=== PATIENT | female | born 1985 ===

== ENCOUNTER 2018-02-28 10:40 | Emergency (ER) | payer SELFPAY ==
[2018-02-28 11:13] LABS: #Basophils 0.1 thou/uL (0.0-0.2); #Eosinphils 0.1 thou/uL (0.0-0.7); #Lymphocytes 1.9 thou/uL (1.20-3.40); #Monocytes 0.6 thou/uL (0.11-0.59); #Neutrophils 3.4 thou/uL (1.40-6.50); %Basophils 1.3 % (0.0-1.0); %Eosinophils 1.4 % (0.0-10.0); %Monocytes 10.3 % (0.0-10.0); %Neutrophils 55.9 % (42.0-75.0); Hemoglobin 14.9 g/dL (12.0-16.0); Mean Corpuscular HGB CONC 34.3 g/dL (32.0-36.0); Mean Corpuscular Hemoglobin 32.7 pg (27.0-31.0); Mean Corpuscular Volume 95.4 fL (78.0-98.0); Mean Platelet Volume 8.9 fL (7.4-10.4); Platelet Count 166 thou/uL (130-400); RBC Distribution Width 11.6 % (11.5-14.5); Red Blood Cell (RBC) Count 4.56 mill/uL (4.20-5.40); White Blood Cell (WBC) Count 6.2 thou/uL (4.8-10.8)
[2018-02-28 11:32] LABS: Bilirubin Negative (Negative); Blood, Urine Negative (Negative); Clarity CLOUDY (Clear); Glucose, Urine (Dipstick) Negative (Negative); Leukocyte Negative (Negative); Nitrite Negative (Negative); Pregnancy Test - Urine (BHCG) Negative (Negative); Pregu Control Background? CLEAR/WHITE (CLR/WHITE); Pregu Control Bar Appear? YES (CONTROL BAR); Protein, Urine (Dipstick) Trace mg/dL (Neg-Trace); Specific Gravity 1.024 (1.002-1.036); Specific Gravity, Urine 1.024 (1.002-1.036); Urobilinogen 0.2 mg/dL (0.2-1.0)
[2018-02-28 11:36] LABS: ALT (SGPT) 7 U/L (8-55); AST (SGOT) 11 U/L (5-34); Albumin 4.5 g/dL (3.5-5.0); Alkaline Phosphatase 54 U/L (40-150); Anion Gap 12 mmol/L (10-20); BUN (Urea Nitrogen) 11 mg/dL (7.0-18.7); Bilirubin, Total 0.6 mg/dL (0.2-1.2); Calc. Creatinine Clearance 0 mL/min (70-130); Calcium 9.8 mg/dL (7.8-10.44); Carbon Dioxide 24 mmol/L (22-29); Chloride 105 mmol/L (98-107); Estimated GFR-MDRD 90; Globulin 2.7 g/dL (2.4-3.5); Glucose 105 mg/dL (70-105); Lipase 38 U/L (8-78); Potassium 3.7 mmol/L (3.5-5.1); Protein, Total 7.2 g/dL (6.0-8.3); Sodium 137 mmol/L (136-145)
[2018-02-28] MEDS ORDERED: ISOVUE-370 76%-LOCM 1 ML ONE (13:00)
[2018-02-28] MEDS ORDERED: Ibuprofen 800 MG TAB ONE (16:17)
--- NOTE | 2018-02-28 16:23 | ULT ---
PELVIS SONOGRAM TRANSABDOMINAL AND TRANSVAGINAL IMAGING WITH DUPLEX EVALUATION: HISTORY: Pelvic pain. FINDINGS: The urinary bladder is decompressed. The uterus has a heterogeneous echotexture and measures up to 8 .9 cm. Nabothian cysts arise from the cervix. The endometrium is 1.1 cm. Tiny parametrial calcific ations. An oval hypoechoic lesion, just anterior to the endometrium, at the level of the lower uteri ne segment, is well circumscribed and measures up to 1.9 x 1.0 cm in diameter. No free fluid is in the pelvis. The right ovary is 4.9 cm and the left is 3.1 cm. Each contains fol licles and demonstrates good color and spectral Doppler flow. IMPRESSION: Oval, well circumscribed, hypoechoic, 1.9 cm mass at the anterior myometrium of the lower uterine seg ment. Fibroid is favored. POS: YULISA
--- NOTE | 2018-02-28 18:07 | CT ---
CT ABDOMEN AND PELVIS WITH IV CONTRAST: 02/28/2018 HISTORY: Suprapubic and left-sided pelvic pain, intermittently, over the past several years. Recent weight lo ss. Chronic constipation. Diagnosed with a mass two years ago. FINDINGS: The lung bases are clear. No pulmonary nodule or mass is seen. The liver, spleen, pancreas, bilateral adrenal glands, kidneys, and abdominal aorta demonstrate a nor mal CT appearance. There is a 2 cm, hypodense cystic structure seen in the right adnexa, which corre sponds to the right ovarian cyst seen on the pelvis ultrasound, also obtained on today's date. There is a subtle, low density area seen within the lower uterine segment, near the level of the cerv ix, which likely corresponds to the hypoechoic mass-like structure seen on recent ultrasound exam. T his may represent a complicated nabothian cyst, given positioning near the region of the cervix. Fluid-filled loops of bowel are seen, but no dilated loops of small bowel are appreciated. The appen suzy is not visualized, secondary to lack of intraabdominal fat and multiple loops of unopacified colt l. No free fluid or fluid collection is seen in the abdomen or pelvis. No obvious enlarged lymph nodes are seen. IMPRESSION: 1. No acute findings are seen in the abdomen or pelvis. 2. Right ovarian cyst. 3. Hypoechoic area near the region of the cervix. This may correspond to the complicated nabothian cyst seen on recent ultrasound examination. 4. Nonspecific dilated pelvic vessels on the left, adjacent to the uterus. 5. Nonvisualization of the appendix, as described above. No obvious secondary signs are seen to sug gest appendicitis. POS: YULISA
== END 2018-02-28 18:16 | disposition home or self-care (01) ==
LOC: ERS 10:40
DX: N83.201 Unspecified ovarian cyst, right side (principal); N88.8 Other specified noninflammatory disorders of cervix uteri; D25.9 Leiomyoma of uterus, unspecified; F17.210 Nicotine dependence, cigarettes, uncomplicated
CPT/HCPCS: 74177; 76856; 80053; 81003; 81025; 83690; 85025; 93005